=== PATIENT | female | born 1970 | race Caucasian/White ===

== ENCOUNTER 2023-12-23 13:27 | Emergency (ER) | payer MEDICARE ==
[2023-12-23 13:36] VITALS: RESP 18; TEMP 96.8
--- NOTE | 2023-12-23 14:12 | ERPHSYRPT ---
- History of Present Illness Time Seen by Provider: 12/23/23 13:38 Source: patient Exam Limitations: no limitations Patient Subjective Stated Complaint: PT states "I have had the diarrhea and my body hurts and I am chilling and just do not feel well. I went to the clinic and they told me I do not have covid and then I went to [facility] and they told me I have the flu." Triage Nursing Assessment: PT presented alert and oriented X 3, skin wpd. Pt ambulates with an upright steady gait, able to speak in clear full sentences. PT resting comfortably on the bed. Physician History: 53-year-old female with history of hypertension, hypothyroidism, GERD, anxiety/depression presented to the ER with complains of bodyaches and flulike symptoms for the last 4 days after she had a dental procedure done. Patient has been evaluated at urgent care and [facility] ER, was told she has influenza. Reports feeling weak fatigued tired and dehydrated, does have an episode of loose stool earlier today, has some abdominal cramping with nausea but no vomiting. Subjective feeling of fever and chills with hot flashes at times. No cough or sore throat. No chest pain palpitations or shortness of breath. Allergies/Adverse Reactions: No Known Drug Allergies Allergy (Verified 04/20/23 13:27) Home Medications: Citalopram Hydrobromide 20 mg* [ceLEXa 20 MG] 20 mg PO DAILY 12/23/23 [History] Levothyroxine Sodium 25 Mcg [Synthroid 25 Mcg] 25 mcg PO DAILY 12/23/23 [History] Lisinopril 20 mg [Zestril 20 MG] 20 mg PO DAILY 12/23/23 [History] Hx Tetanus, Diphtheria Vaccination/Date Given: No Hx Influenza Vaccination/Date Given: No Hx Pneumococcal Vaccination/Date Given: No Immunizations Up to Date: No Travel Risk - International Travel Have you traveled outside of the country in past 3 weeks: No - Emerging Infectious Disease Are you exhibiting symptoms associated with any current EIDs: No - Review of Systems Constitutional: Fatigue, Weakness Eyes: No Symptoms Ears, Nose, & Throat: No Symptoms Respiratory: No Symptoms Cardiac: No Symptoms Abdominal/Gastrointestinal: Abdominal Pain, Nausea, Diarrhea Genitourinary Symptoms: No Symptoms Musculoskeletal: Myalgias Skin: No Symptoms Neurological: Headache Psychological: Anxiety Endocrine: No Symptoms Hematologic/Lymphatic: No Symptoms - Past Medical History Pertinent Past Medical History: Yes Neurological History: Migraines ENT History: No Pertinent History Cardiac History: No Pertinent History Respiratory History: No Pertinent History Endocrine Medical History: No Pertinent History Musculoskeletal History: No Pertinent History GI Medical History: No Pertinent History History: No Pertinent History Psycho-Social History: Depression Female Reproductive Disorders: No Pertinent History - Past Surgical History Past Surgical History: Yes Neuro Surgical History: No Pertinent History Cardiac: No Pertinent History Respiratory: No Pertinent History Gastrointestinal: Cholecystectomy Genitourinary: No Pertinent History Musculoskeletal: Orthopedic Surgery Female Surgical History: Section Other Surgical History: OVARIAN CYSTS,RECTAL FISSURE Significant Family History: no pertinent family hx - Female History Hx Last Menstrual Period: 09/2023 Hx Now: No - Social History Smoking Status: Never smoker Exposure to second hand smoke: No Alcohol Use: None Drug Use: none Patient Lives Alone: No - Social Determinants of Health Will the patient participate in the screening: Declined to provide - Nursing Vital Signs Nursing Vital Signs: Initial Vital Signs Temperature 96.8 F 12/23/23 13:31 Pulse Rate 66 12/23/23 13:31 Respiratory Rate 18 12/23/23 13:31 Blood Pressure 175/106 12/23/23 13:31 O2 Sat by Pulse Oximetry 100 12/23/23 13:31 Pain Scale Pain Intensity 0 - Physical Exam General Appearance: no apparent distress, alert, anxiety Eye Exam: PERRL/EOMI Ears, Nose, Throat Exam: normal ENT inspection Neck Exam: normal inspection, supple, full range of motion Respiratory Exam: normal breath sounds, lungs clear Cardiovascular Exam: regular rate/rhythm, normal heart sounds Gastrointestinal/Abdomen Exam: soft, normal bowel sounds, No tenderness Back Exam: normal inspection, normal range of motion Extremity Exam: normal inspection, normal range of motion Neurologic Exam: alert, oriented x 3, cooperative, dust collector attendant II-XII nml as tested, nml cerebellar function, nml station & gait, sensation nml, No normal mood/affect, No motor deficits Skin Exam: normal color SpO2 Interpretation: normal SpO2: 99 O2 Delivery: Room Air Ordered Tests: Active Orders 24 hr Category Date Time Status CBC W DIFF Stat Lab 12/23/23 14:22 Completed CMP Stat Lab 12/23/23 14:22 Completed LIPASE Stat Lab 12/23/23 14:22 Completed Lactic Acid Stat Lab 12/23/23 14:05 Completed UA W/RFX UR CULTURE Stat Lab 12/23/23 15:38 Completed Medication Summary Discontinued Medications Generic Name Dose Route Start Last Admin Trade Name Rosie PRN Reason Stop Dose Admin Sodium Chloride 1,000 mls @ 999 mls/hr 12/23/23 14:05 12/23/23 15:47 Sodium Chloride 0.9% 1000 Ml IV 12/23/23 15:05 Infused .Q1H1M STA Infusion Sodium Chloride Confirm 12/23/23 14:40 Sodium Chloride 0.9% 1000 Ml Administered 12/23/23 14:41 Dose 1,000 mls @ ud .ROUTE .K-MED ONE Lab/Rad Data: Laboratory Result Diagrams 12/23/23 14:22 12/23/23 14:22 Laboratory Results 12/23/23 12/23/23 12/23/23 Range/Units 15:38 14:26 14:22 WBC (3.98-10.04) x10^3/uL RBC (3.93-5.22) x10^6/uL Hgb (11.2-15.7) g/dL Hct (34.1-44.9) % MCV (79.4-94.8) fL MCH (25.6-32.2) pg MCHC (32.2-35.5) g/dL RDW (11.7-14.4) % Plt Count (182-369) x10^3/uL MPV (9.4-12.3) fL Gran % (34.0-71.1) % Immature Gran % (Auto) (0.001-0.429) % Nucleat RBC Rel Count (0.00-0.2) % Eos # (Auto) (0.04-0.36) x10^3/uL Immature Gran # (Auto) (0.001-0.031) x10^3u/L Absolute Lymphs (auto) (1.18-3.74) x10^3/uL Absolute Monos (auto) (0.24-0.86) x10^3/uL Absolute Nucleated RBC (0.00-0.012) x10^3u/L Lymphocytes % (19.3-51.7) % Monocytes % (4.7-12.5) % Eosinophils % (0.7-5.8) % Basophils % (0.1-1.2) % Absolute Granulocytes (1.56-6.13) x10^3/uL Basophils # (0.01-0.08) x10^3/uL Sodium 142 (135-145) mmol/L Potassium 3.5 (3.5-5.1) mmol/L Chloride 108 H (98-107) mmol/L Carbon Dioxide 26 (22-30) mmol/L Anion Gap 11.6 (5-15) MEQ/L BUN 8 (7-17) mg/dL Creatinine 0.66 (0.52-1.04) mg/dL Estimated GFR 106.1 ML/MIN Glucose 96 (74-106) mg/dL Lactic Acid (0.4-2.0) Calcium 9.3 (8.4-10.2) mg/dL Total Bilirubin 0.50 (0.2-1.3) mg/dL AST 38 H (14-36) U/L ALT 42 H (0-35) U/L Alkaline Phosphatase 70 (38-126) U/L Serum Total Protein 6.8 (6.3-8.2) g/dL Albumin 4.1 (3.5-5.0) g/dL Lipase 79 (23-300) U/L Urine Color Yellow (Yellow) Urine Appearance Clear (Clear) Urine pH 6.0 (4.6-8.0) Ur Specific [place] 1.020 (1.005-1.030) Urine Protein Negative (Negative) Urine Glucose (UA) Negative (Negative) mg/dL Urine Ketones 15 A (Negative) Urine Blood Negative (Negative) Urine Nitrite Negative (Negative) Urine Bilirubin Negative (Negative) Urine Urobilinogen 0.2 (0.2) mg/dL Ur Leukocyte Esterase Negative (Negative) U Hyaline Cast (Auto) NONE SEEN (0-2) /LPF Urine Microscopic RBC 0-2 (0-5) /HPF Urine Microscopic WBC 0-2 (0-5) /HPF Ur Epithelial Cells Rare (None Seen) /HPF Urine Bacteria None Seen (None Seen) /HPF Urine Culture Reflexed NO (NO) Influenza Type A Ag NEGATIVE (NEGATIVE) Influenza Type B Ag NEGATIVE (NEGATIVE) RSV (PCR) NEGATIVE (NEGATIVE) SARS-CoV-2 (PCR) NEGATIVE (NEGATIVE) 12/23/23 12/23/23 Range/Units 14:22 14:05 WBC 4.7 (3.98-10.04) x10^3/uL RBC 4.09 (3.93-5.22) x10^6/uL Hgb 11.8 (11.2-15.7) g/dL Hct 36.2 (34.1-44.9) % MCV 88.5 (79.4-94.8) fL MCH 28.9 (25.6-32.2) pg MCHC 32.6 (32.2-35.5) g/dL RDW 12.4 (11.7-14.4) % Plt Count 215 (182-369) x10^3/uL MPV 9.4 (9.4-12.3) fL Gran % 67.0 (34.0-71.1) % Immature Gran % (Auto) 0.2 (0.001-0.429) % Nucleat RBC Rel Count 0.0 (0.00-0.2) % Eos # (Auto) 0.03 L (0.04-0.36) x10^3/uL Immature Gran # (Auto) 0.01 (0.001-0.031) x10^3u/L Absolute Lymphs (auto) 0.93 L (1.18-3.74) x10^3/uL Absolute Monos (auto) 0.56 (0.24-0.86) x10^3/uL Absolute Nucleated RBC 0.00 (0.00-0.012) x10^3u/L Lymphocytes % 19.7 (19.3-51.7) % Monocytes % 11.9 (4.7-12.5) % Eosinophils % 0.6 L (0.7-5.8) % Basophils % 0.6 (0.1-1.2) % Absolute Granulocytes 3.16 (1.56-6.13) x10^3/uL Basophils # 0.03 (0.01-0.08) x10^3/uL Sodium (135-145) mmol/L Potassium (3.5-5.1) mmol/L Chloride (98-107) mmol/L Carbon Dioxide (22-30) mmol/L Anion Gap (5-15) MEQ/L BUN (7-17) mg/dL Creatinine (0.52-1.04) mg/dL Estimated GFR ML/MIN Glucose (74-106) mg/dL Lactic Acid 0.7 (0.4-2.0) Calcium (8.4-10.2) mg/dL Total Bilirubin (0.2-1.3) mg/dL AST (14-36) U/L ALT (0-35) U/L Alkaline Phosphatase (38-126) U/L Serum Total Protein (6.3-8.2) g/dL Albumin (3.5-5.0) g/dL Lipase (23-300) U/L Urine Color (Yellow) Urine Appearance (Clear) Urine pH (4.6-8.0) Ur Specific [place] (1.005-1.030) Urine Protein (Negative) Urine Glucose (UA) (Negative) mg/dL Urine Ketones (Negative) Urine Blood (Negative) Urine Nitrite (Negative) Urine Bilirubin (Negative) Urine Urobilinogen (0.2) mg/dL Ur Leukocyte Esterase (Negative) U Hyaline Cast (Auto) (0-2) /LPF Urine Microscopic RBC (0-5) /HPF Urine Microscopic WBC (0-5) /HPF Ur Epithelial Cells (None Seen) /HPF Urine Bacteria (None Seen) /HPF Urine Culture Reflexed (NO) Influenza Type A Ag (NEGATIVE) Influenza Type B Ag (NEGATIVE) RSV (PCR) (NEGATIVE) SARS-CoV-2 (PCR) (NEGATIVE) - Progress Progress: improved, re-examined Progress Note: 12/23/23 16:01 53-year-old is evaluated in the ER for flulike symptoms. Patient is not in any distress. Although she is very anxious. Lungs bilateral clear to auscultation. No abdominal tenderness. She is afebrile. Given fluids, on reevaluation she is feeling better. Workup showed normal white count, unremarkable chemistries, no UTI and has negative's flu COVID and RSV. I do not think patient needs imaging. I believe patient has viral etiology symptoms/viral syndrome, recommended supportive care and outpatient follow-up. Discussed signs symptoms of worsening needing return to ER which she seems understanding. Stable for discharge. Counseled pt/family regarding: diagnosis, need for follow-up Medical Desision Making - Independent Historian Additional History obtained from: Family - Diagnostic Testing Diagnostic test were ordered, analyzed, and reviewed by me: Yes - Risk of complications The pt has a mod risk of morbidity or mortality based on: Need for prescription drug management - Departure Departure Disposition: Home Clinical Impression: Viral syndrome Condition: Stable Critical Care Time: No Referrals: NIELS BOONE NP [Primary Care Provider] - Follow up with PCP 1 day Instructions: Fatigue ED Additional Instructions: Plenty of fluids. Take Tylenol as needed. Follow-up with primary care for reevaluation. Return to ER for any worsening.
[2023-12-23 14:27] LABS: Absolute Neutrophil Ct (ANC) 3.16 x10^3/uL (1.56-6.13); BASOPHIL % 0.6 % (0.1-1.2); Basophil (Absolute #) 0.03 x10^3/uL (0.01-0.08); Eosinophil % 0.6 % (0.7-5.8); Eosinophil (Absolute #) 0.03 x10^3/uL (0.04-0.36); Hematocrit 36.2 % (34.1-44.9); Hemoglobin 11.8 g/dL (11.2-15.7); IMMATURE GRAN # 0.01 x10^3u/L (0.001-0.031); IMMATURE GRAN % 0.2 % (0.001-0.429); Lymphocyte (Absolute #) 0.93 x10^3/uL (1.18-3.74); Lymphocytes % 19.7 % (19.3-51.7); Mean Cell Volume 88.5 fL (79.4-94.8); Mean Corpuscular Hemoglobin 28.9 pg (25.6-32.2); Mean Corpuscular Hgb Concent. 32.6 g/dL (32.2-35.5); Mean Platelet Volume 9.4 fL (9.4-12.3); Monocyte (Absolute #) 0.56 x10^3/uL (0.24-0.86); Monocytes % 11.9 % (4.7-12.5); Platelet Count 215 x10^3/uL (182-369); Red Blood Count 4.09 x10^6/uL (3.93-5.22); Red Cell Distribution Width 12.4 % (11.7-14.4); White Blood Count 4.7 x10^3/uL (3.98-10.04)
[2023-12-23 14:37] LABS: ALBUMIN 4.1 g/dL (3.5-5.0); ANION GAP 11.6 MEQ/L (5-15); BILIRUBIN,TOTAL 0.5 mg/dL (0.2-1.3); Calcium 9.3 mg/dL (8.4-10.2); Creatinine 1 0.66 mg/dL (0.52-1.04); EST GLOMERULAR FILTRATION RATE 106.1 ML/MIN; Potassium 3.5 mmol/L (3.5-5.1); Total Protein 6.8 g/dL (6.3-8.2)
[2023-12-23] MEDS ORDERED: Sodium Chloride 0.9% 1000 ML 1,000 ML ONE (14:40)
[2023-12-23] MEDS: Sodium Chloride 0.9% 1000 ML 1,000 ML IV STA (14:44)
[2023-12-23 15:03] LABS: INFLUENZA A NEGATIVE (NEGATIVE); INFLUENZA B NEGATIVE (NEGATIVE); RESPIRATORY SYNCTIAL VIRUS NEGATIVE (NEGATIVE); SARS-CoV-2 Xpert Express NEGATIVE (NEGATIVE)
[2023-12-23 15:56] LABS: Appearance Clear (Clear); Bacteria None Seen /HPF (None Seen); Bilirubin Negative (Negative); Blood Negative (Negative); Epithelial Cells Rare /HPF (None Seen); Glucose, Urine Negative (Negative); Hyaline Casts NONE SEEN /LPF (0-2); Ketones 15 (Negative); Leukocyte Esterase Negative (Negative); Nitrite Negative (Negative); Protein,Urine Dip Negative (Negative); RBC 0-2 /HPF (0-5); Urobilinogen 0.2 mg/dL (0.2); WBC 0-2 /HPF (0-5)
[2023-12-23 15:58] LABS: ADD URINE CULTURE? NO (NO)
[2023-12-23 16:05] VITALS: O2SAT 99
[2023-12-23 16:09] VITALS: BP 151/97; PULSE 58
== END 2023-12-23 16:21 | disposition home or self-care (01) ==
LOC: ED 13:27
DX: B34.9 Viral infection, unspecified (principal); M79.10 Myalgia, unspecified site; R53.1 Weakness; R53.83 Other fatigue; R19.7 Diarrhea, unspecified; Z79.899 Other long term (current) drug therapy
CPT/HCPCS: 0241U; 36415; 80053; 81001; 83605; 83690; 85025; 96360; 99284

== ENCOUNTER 2025-02-12 10:16 | Day surgery (SDC) | payer MEDICARE ==
[2025-02-12 10:36] VITALS: RESP 18
[2025-02-12] MEDS ORDERED: propofoL IV ONE ×4 (13:13→13:59)
[2025-02-12] MEDS ORDERED: Versed 2 MG/2 ML Injection ONE (13:13)
[2025-02-12] MEDS ORDERED: Zofran 4 MG/2 ML VIAL ONE (13:13)
[2025-02-12] MEDS ORDERED: Xylocaine-Mpf 2% 5 Ml Vial ONE (13:13)
[2025-02-12] MEDS ORDERED: BENADRYL 50 MG/ML ONE (13:14)
[2025-02-12] MEDS ORDERED: TORAdol 30 mg Injection ONE (13:14)
[2025-02-12 15:01] VITALS: TEMP 97
[2025-02-12 15:09] VITALS: BP 129/87; PULSE 70; O2SAT 98
--- NOTE | 2025-02-13 10:20 | OP ---
SURGERY DATE/TIME: 02/12/2025 [id number] PREOPERATIVE DIAGNOSES: 1) Ileitis. 2) Esophageal diverticulum. 3) Heartburn. POSTOPERATIVE DIAGNOSES: 1) Mild gastritis. 2) Mild duodenitis. 3) No evidence of significant esophageal diverticulum. 4) Colon polyp. PROCEDURE: 1) Esophagogastroduodenoscopy with biopsy. 2) Colonoscopy with biopsies and hot snare polypectomy. SURGEON: Idris Verma MD CAR CONSTRUCTION SUPERINTENDENT: Angel Kyle MD ANESTHESIA: IV. CONDITION: Stable. COMPLICATIONS: None. SPECIMENS: As below. DESCRIPTION OF PROCEDURE AND FINDINGS: The patient was brought to the endoscopy suite, routinely positioned, prepared, and IV anesthesia induced by Anesthesia. Gastroscope inserted through the mouth, advanced through the third portion of the duodenum. Duodenum is with mild erythema. Biopsies taken of duodenum. Stomach just with mild erythema. Stomach biopsy taken for H pylori. Retroflexion with maybe a small sliding hiatal hernia. Normal esophagus. I do not really appreciate any diverticulum. Stomach is suctioned out. Scope was withdrawn.External examination normal. Digital rectal exam normal. Colonoscope inserted and advanced to the terminal ileum. Pictures of the terminal ileum, appendiceal orifice, and ileocecal valve taken. Preparation is A[place]ick good preparation with over 90% mucosal visualization. An 8 minute withdrawal time. On withdrawal, biopsies are taken of the terminal ileum, cecum, transverse colon, descending colon, rectum. There is an 8 mm pedunculated polyp at the distal descending colon taken with a hot snare. Also rectal biopsies taken. Retroflexion satisfactory. Scope withdraw. Patient tolerated the procedure well and was taken to recovery in stable condition. RECOMMENDATIONS: Follow up in office for pathology results. We do need to obtain all of her previous records that reportedly state that she had ileitis and her prior workup with GI.
== END 2025-02-12 15:19 | disposition home or self-care (01) ==
LOC: SDC 10:16
PROVIDERS: ATTEND Surgery
DX: K29.70 Gastritis, unspecified, without bleeding (principal); K52.9 Noninfective gastroenteritis and colitis, unspecified; Q39.6 Congenital diverticulum of esophagus; R12 Heartburn; K29.80 Duodenitis without bleeding; E11.9 Type 2 diabetes mellitus without complications; D12.4 Benign neoplasm of descending colon